=== PATIENT | female | born 1990 | race Caucasian/White ===

== ENCOUNTER 2023-02-08 13:15 | Emergency (ER) | payer OTHER, SELFPAY ==
--- NOTE | ~2023-02-08 | XR_ITS ---
EXAMINATION: XR wrist RT min 3V INDICATION: Right wrist pain TECHNIQUE: Four views of the right wrist are obtained. COMPARISON: None available FINDINGS: No fracture, dislocation, or subluxation. The bones, soft tissues, and joint spaces are nor mal. IMPRESSION: 1. No acute osseous abnormality. Reviewed, dictated and finalized at location B.
[2023-02-08 13:27] VITALS: BP 139/83; PULSE 85; RESP 16; TEMP 36.9; O2SAT 100
--- NOTE | 2023-02-08 13:50 | ED.UPPEXIN ---
HPI - Extremity Injury (Upper) General Chief Complaint: Extremity Injury, Upper Stated Complaint: Right Wrist Injury Time Seen by Provider: 02/08/23 13:50 Source: patient and RN notes reviewed Mode of arrival: ambulatory Limitations: no limitations History of Present Illness HPI narrative: 32-year-old female presents with concern for right wrist pain that shoots up her arm towards her elbow. She reports yesterday she was lifting a couch when it started to fall and she tried to catch it, she began having pain after that. She reports some swelling. She denies decreased MD complaint: injury to: right and wrist Related Data Home Medications Medication Instructions Recorded Confirmed bupropion HCl 150 mg 24 hr tablet, 150 mg PO DAILY 02/08/23 02/08/23 extended release norethindrone 1 mg-ethinyl 1 tablet PO DAILY 02/08/23 02/08/23 estradiol 20 mcg (24)-iron 75 mg (4) tablet ([place] 24 Fe) sertraline 100 mg tablet 100 mg PO DAILY 02/08/23 02/08/23 Allergies Allergy/AdvReac Type Severity Reaction Status Date / Time No Known Allergies Allergy Verified 02/08/23 13:58 Review of Systems Review of Systems: CONSTITUTIONAL: Denies malaise, chills, sweats, or fever. SKIN: Denies rash or itching, open skin, laceration, abrasion, redness, warmth MUSCULOSKELETAL: Reports right wrist pain, swelling NEUROLOGIC: Denies numbness, weakness All systems reviewed & are unremarkable except as noted in HPI and below PMFSH Comments At time of signature, agree with nursing past medical, surgical, social and family history. There is no relevant family history pertinent to the presenting complaint Exam Narrative: GENERAL: Well-appearing, well-nourished, and in no acute distress. HEAD: Normocephalic, atraumatic. EYES: PERRLA, conjunctivae clear NECK: Supple. CHEST: Speaks in full sentences. No respiratory distress. HEART: Regular rate and rhythm. Normal and equal peripheral pulses. EXTREMITIES: Right wrist, hand, digits have grossly normal strength and sensation, grossly normal range of motion with pain with rotation. No edema or ecchymosis. Normal sensation with sensitivity to light touch and pain. Radial tenderness. No open wounds, no skin tenting, no devitalized tissue or atrophy, no trophic changes, no obvious deformity, alignment normal, nearby joints and structures intact. Distal pulses palpable and equal bilaterally, skin warm, dry, pink. Capillary refill less than 3 seconds. SKIN: Warm, dry, no rash. NEURO: Alert and oriented x3. PSYCH: Normal mood and affect Course Course Emergency Course: Patient is aware of diagnosis, understands and agrees to treatment plan. Anticipatory guidance given. Patient agrees to follow-up as directed and is aware of reasons to seek care at the emergency department. Portions of this record may have been created with voice recognition software Level of Care: Express Care Visit Vital Signs Vital signs: Vital Signs Temperature 98.4 F 02/08/23 13:27 Pulse Rate 85 02/08/23 13:27 Respiratory Rate 16 02/08/23 13:27 Blood Pressure 139/83 02/08/23 13:27 Pulse Oximetry 100 02/08/23 13:27 Oxygen Delivery Room Air 02/08/23 13:27 Temperature 98.4 F 02/08/23 13:27 Pulse Rate 85 02/08/23 13:27 Respiratory Rate 16 02/08/23 13:27 Blood Pressure 139/83 02/08/23 13:27 Pulse Oximetry 100 02/08/23 13:27 Oxygen Delivery Room Air 02/08/23 13:27 Reviewed. MDM - Extremity Injury (Upper) MDM Narrative Medical decision making narrative: Patients injury and pain is consistent with musculoskeletal etiology. No signs of neurological or vascular compromise on exam. Compartments and tissues are soft without signs of compartment syndrome. Pain is felt appropriate for further evaluation on an outpatient basis. Imaging Data My impression: Images reviewed, interpreted by radiologist, agree, see report. Radiologist's impression: EXAMINATION: XR wrist RT m
== END 2023-02-08 14:05 | disposition home or self-care (01) ==
PROVIDERS: Emergency Provider Nurse Practitioner
DX: S63.501A Unspecified sprain of right wrist, initial encounter (principal); S66.911A Strain of unspecified muscle, fascia and tendon at wrist and hand level, right hand, initial encounter; Z79.899 Other long term (current) drug therapy; X50.0XXA Overexertion from strenuous movement or load, initial encounter
CPT/HCPCS: 73110; 99213; G0463